=== PATIENT | female | born 1990 | race Caucasian/White ===

== ENCOUNTER 2016-11-23 11:21 | Emergency (ER) | payer OTHER ==
[~2016-11-23] VITALS: Ht 154.9 cm; Wt 55.0 kg
[2016-11-23 11:22] VITALS: BP 109/64; PULSE 62; RESP 15; TEMP 98.6; O2SAT 100
[2016-11-23] MEDS ORDERED: POLY10O LEFT EYE (12:02)
--- NOTE | 2016-11-23 12:04 | PD ---
HPI Chief Complaint: Eye Problems/Injury Time Seen by Provider: 12:02 Travel History International Travel<30 days: No Contact w/Intl Traveler<30days: No Traveled to known affect area: No History of Present Illness HPI 25-year-old female presents to the emergency department for evaluation of left eye redness and itching that began yesterday when she was splashed with nasogastric contents. 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 States that the patient was positive for acinetobacter. States patient was negative for hepatitis and has no history of HIV. She denies any discharge or drainage from the eye, denies any blurred vision or vision loss, fever, chills, headache or dizziness. She does not wear contact lenses. No other complaints. PFSH Past Medical History Medical History: Denies Significant Hx ?: Not Social History Alcohol Use: No Tobacco Use: No Substance Use: No Allergies-Medications (Allergen,Severity, Reaction): Coded Allergies: No Known Allergies (Unverified , 11/23/16) Reported Meds & Prescriptions Reported Meds & Active Scripts Active Polytrim Opth Drops (Polymyxin/Trimethoprim Sulfate) 10,000-0.1 Unit/Ml-% Soln 1 Drop LEFT EYE Q6HR 7 Days Review of Systems Except as stated in HPI: all other systems reviewed are Neg Physical Exam Narrative GENERAL: Well-nourished and well-developed pleasant patient in no acute distress who is nontoxic appearing. SKIN: Warm and dry. HEAD: Normocephalic and atraumatic. EYES: Left eye with slight conjunctival and scleral injection. Right eye within normal limits. No drainage or hyphema noted. PERRLA. EOMI. ENT: No nasal drainage noted. Oropharynx is clear. NECK: Supple and the trachea is midline. CARDIOVASCULAR: Regular rate and rhythm. RESPIRATORY: Breath sounds are equal bilaterally with no accessory muscle use, wheezing, rhonchi, or crackles. GASTROINTESTINAL: Abdomen is soft, non-tender, and nondistended. MUSCULOSKELETAL: No obvious deformities, swelling, cyanosis, or ecchymosis is present throughout the upper and lower extremities. Patient has full range of motion without any signs of neurovascular compromise. NEUROLOGICAL: Awake, alert, and oriented. Normal speech and gait. Cranial nerves are grossly intact. 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 Patient is afebrile, vital signs are stable. Exam is consistent with conjunctivitis. Patient will be prescribed Polytrim ophthalmic drops. Last postexposure prophylactic therapy, patient declines this treatment at this time. She is instructed to follow up as an outpatient with employee [facility]. Diagnosis Primary Impression: Conjunctivitis of left eye Qualified Code: H10.32 - Acute bacterial conjunctivitis of left eye Referrals: [facility] Primary Care Physician Patient Instructions: General Instructions Additional Instructions: Apply warm compresses to help alleviate symptoms. Wash hands frequently. Use eyedrops as prescribed. Follow-up with [employer] Return to the ED for any acute worsening of symptoms. Med/Other Pt SpecificInfo: Prescription(s) given Scripts Polymyxin B-Trimethoprim Opth Drops (Polytrim Opth Drops)10,000-0.1 Unit/Ml-% Soln1 Drop LEFT EYE Q6HR 7 Days Ref 0 Prov:Lakia Quinonez MD 11/23/16 Disposition: 01 DISCHARGE HOME Condition: Stable Laurie Tucker November 23, 2016 12:04
== END 2016-11-23 12:29 | disposition home or self-care (01) ==
LOC: NEPD 11:21
DX: H10.89 Other conjunctivitis (principal); Z77.21 Contact with and (suspected) exposure to potentially hazardous body fluids; W45.8XXA Other foreign body or object entering through skin, initial encounter; Y93.F9 Activity, other caregiving; Y92.230 Patient room in hospital as the place of occurrence of the external cause; Y99.0 Civilian activity done for income or pay
CPT/HCPCS: 99283